=== PATIENT | male | born 1990 | race Caucasian/White ===

== ENCOUNTER 2019-02-03 10:34 | Emergency (ER) | payer BC ==
[~2019-02-03] VITALS: Ht 180.3 cm; Wt 94.8 kg
[2019-02-03 10:41] VITALS: Ht 180.3 cm; Wt 94.8 kg
[2019-02-03 12:11] VITALS: BP 147/96
== END 2019-02-03 12:24 | disposition home or self-care (01) ==
LOC: ED 10:34
DX: G89.29 Other chronic pain (principal); M54.5 Low back pain
CPT/HCPCS: J1885; J2270

== ENCOUNTER 2020-06-22 01:19 | Emergency (ER) | payer OTHER ==
[~2020-06-22] VITALS: Ht 182.9 cm; Wt 109.8 kg
[2020-06-22 01:28] VITALS: Ht 182.9 cm; Wt 109.8 kg
[2020-06-22 03:33] VITALS: BP 169/112
== END 2020-06-22 03:33 | disposition home or self-care (01) ==
LOC: ED 01:19
DX: R07.89 Other chest pain (principal); G89.29 Other chronic pain; F17.200 Nicotine dependence, unspecified, uncomplicated; Z98.890 Other specified postprocedural states
CPT/HCPCS: 99406; Q0092